=== PATIENT | female | born 1960 ===

== ENCOUNTER 2019-07-21 06:39 | Inpatient (IN) | payer MEDICARE, MEDICAID ==
[~2019-07-21] VITALS: Ht 167.6 cm; Wt 93.1 kg
[~2019-07-21 06:39] MED LIST: GABA800T5 PO; LUBI24CA7 PO; OXYC-432 PO
[2019-07-21] MEDS ORDERED: BUPIVACAINE/PF-EPI 0.25% 1:200K ONE (07:07)
[2019-07-21] MEDS ORDERED: THROMBIN 5,000 UNIT VIAL TP ONE (07:07)
[2019-07-21] MEDS ORDERED: EPINEPHRINE 1 MG/ML, 1ML ONE (07:07)
[2019-07-21] MEDS ORDERED: VANCOMYCIN 1,000 MG ONE ×2 (07:07→09:26)
[2019-07-21] MEDS ORDERED: LIDOCAINE/PF 0.5% ,50ML ONE (07:07)
[2019-07-21] MEDS ORDERED: LACTATED RINGERS 1,000 ML IV SCH (07:16)
[2019-07-21 07:18] VITALS: BP 119/81
[2019-07-21] MEDS ORDERED: FENTANYL PF 250 MCG/5ML ONE (07:21)
[2019-07-21] MEDS ORDERED: LIDOCAINE GEL 2%, 5ML ONE (07:24)
[2019-07-21] MEDS ORDERED: hydrALAzine 20 MG/ML, 1ML IV PRN (07:30)
[2019-07-21] MEDS ORDERED: FENTANYL PF 100 MCG/2ML IV PRN (07:30)
[2019-07-21] MEDS ORDERED: LABETALOL 5MG/ML, 20ML IV PRN (07:30)
[2019-07-21] MEDS ORDERED: OXYcodone 5 MG/5 ML ORAL.SOL UDC PO PRN (07:30)
[2019-07-21] MEDS ORDERED: MEPERIDINE/PF 25MG/ML,1ML IVPush PRN (07:30)
[2019-07-21] MEDS ORDERED: ACETAMINOPHEN 500 MG TABLET PO ONE (07:30)
[2019-07-21] MEDS ORDERED: PROMETHAZINE 25 MG/ML, 1ML IV PRN (07:30)
[2019-07-21] MEDS ORDERED: GABAPENTIN 300 MG CAPSULE PO ONE (07:30)
[2019-07-21] MEDS ORDERED: HALOPERIDOL 5 MG/ML IV PRN (07:30)
[2019-07-21] MEDS ORDERED: ALBUTEROL HFA 90 MCG/SPRAY ONE (08:00)
[2019-07-21] MEDS ORDERED: SUCCINYLCHOLINE 20 MG/ML, 10ML ONE (10:11)
[2019-07-21] MEDS ORDERED: NEOSTIGMINE 1 MG/ML, 10ML ONE (10:11)
[2019-07-21] MEDS ORDERED: DEXAMETHASONE 4 MG/ML, 1ML ONE (10:11)
[2019-07-21] MEDS ORDERED: GLYCOPYRROLATE 0.2MG/1ML, 5ML ONE (10:11)
[2019-07-21] MEDS ORDERED: PROPOFOL 10 MG/ML, 20ML ONE (10:11)
[2019-07-21] MEDS ORDERED: ONDANSETRON 2MG/ML, 2ML ONE (10:11)
[2019-07-21] MEDS ORDERED: CEFAZOLIN 1,000 MG ONE (10:11)
[2019-07-21] MEDS ORDERED: ROCURONIUM 10MG/ML,5ML ONE (10:11)
[2019-07-21] MEDS ORDERED: MEPERIDINE/PF 25MG/ML,1ML ONE (10:19)
[2019-07-21] MEDS ORDERED: HYDROmorphone 1 MG/ML, 1ML INJ ONE ×2 (10:19→10:40)
[2019-07-21] MEDS ORDERED: OXYcodone 5 MG/5 ML ORAL.SOL UDC ONE (10:19)
[2019-07-21] MEDS ORDERED: METHOCARBAMOL 1,000 MG in DEXTROSE 5% 100 ML IV ONE (10:30)
[2019-07-21] MEDS: HYDROmorphone 2 MG/ML, 1ML IVPush PRN ×3 (10:30→10:50)
[2019-07-21] MEDS ORDERED: DIAZEPAM 5 MG/ML, 2ML ONE (10:49)
[2019-07-21] MEDS ORDERED: DIPHENHYDRAMINE 50 MG/ML, 1ML ONE (10:49)
[2019-07-21] MEDS ORDERED: DIAZEPAM 5 MG/ML, 2ML IVPush PRN (11:00)
[2019-07-21] MEDS ORDERED: DIPHENHYDRAMINE 50 MG/ML, 1ML IVPush PRN (11:00)
[2019-07-21 12:15] VITALS: BP 114/72
[2019-07-21] MEDS ORDERED: HYDROcodone/APAP 5/325 TABLET PO PRN (13:00)
[2019-07-21] MEDS ORDERED: BISACODYL 10 MG SUPP PR PRN (13:00)
[2019-07-21] MEDS ORDERED: ONDANSETRON 2MG/ML, 2ML IV PRN (13:00)
[2019-07-21] MEDS ORDERED: MAGNESIUM HYDROXIDE 8%, 30ML UDC PO PRN (13:00)
[2019-07-21] MEDS ORDERED: PROMETHAZINE 25 MG/ML, 1ML IM PRN (13:00)
[2019-07-21] MEDS ORDERED: LUBIPROSTONE 24 MCG CAPSULE PO PRN (13:00)
[2019-07-21] MEDS: OXYcodone/APAP 5/325MG TABLET PO PRN ×3 (15:40→23:47)
[2019-07-21] MEDS: D5%-0.9% NACL+KCL 20MEQ 1,000 ML IV SCH (15:41)
[2019-07-21] MEDS: CEFAZOLIN PMX 1GM/50ML 50 ML IVPB SCH ×2 (15:41→23:48)
[2019-07-21] MEDS: SENNA/DOCUSATE TABLET PO SCH ×2 (16:00→20:04)
[2019-07-21] MEDS: morphine SULFATE 10 MG/ML, 1ML IV PRN (16:37)
[2019-07-21] MEDS: GABAPENTIN 400 MG CAPSULE PO SCH ×2 (18:15→23:47)
[2019-07-21] MEDS: METHOCARBAMOL 750 MG TABLET PO PRN (18:35)
[2019-07-21 21:01] VITALS: BP 122/72
[2019-07-22] VITALS: BP 116/71
[2019-07-22] MEDS: D5%-0.9% NACL+KCL 20MEQ 1,000 ML IV SCH ×3 (01:00→21:00)
[2019-07-22] MEDS: METHOCARBAMOL 750 MG TABLET PO PRN ×2 (03:56→17:54)
[2019-07-22] MEDS: GABAPENTIN 400 MG CAPSULE PO SCH ×5 (03:57→21:50)
[2019-07-22] MEDS: OXYcodone/APAP 5/325MG TABLET PO PRN ×5 (03:57→21:51)
[2019-07-22 04:08] VITALS: BP 123/90
[2019-07-22 05:59] LABS: ANION GAP 4 mmol/L (5-15); CALCIUM 8.8 mg/dL (8.5-10.1); CHLORIDE 110 mmol/L (98-107); CREATININE 0.63 mg/dL (0.55-1.02)
[2019-07-22 06:00] LABS: BASOPHILS # (AUTO) 0.12 x10^3/uL (0-0.1); BASOPHILS % (AUTO) 1 % (0-1); EOSINOPHILS # (AUTO) 0.01 x10^3/uL (0-0.4); EOSINOPHILS % (AUTO) 0 % (1-7); LYMPHOCYTES # (AUTO) 1.34 x10^3/uL (1-3.4); LYMPHOCYTES % (AUTO) 11 % (22-44); MD NO; MEAN CORPUSCULAR HEMOGLOBIN 29.7 pg (27.0-34.8); MEAN CORPUSCULAR HGB CONC 32.7 g/dL (32.4-35.8); MEAN CORPUSCULAR VOLUME 91.1 fL (80-100); MONOCYTES # (AUTO) 0.69 x10^3/uL (0.2-0.8); MONOCYTES % (AUTO) 6 % (2-9); NEUTROPHILS # (AUTO) 10.31 x10^3/uL (1.8-6.8); NEUTROPHILS % (AUTO) 83 % (42-75); PLATELET COUNT 218 x10^3/uL (130-400); RED BLOOD COUNT 4.09 x10^6/uL (3.82-5.3)
[2019-07-22] MEDS ORDERED: MORPHINE SULFATE 4 MG/ML, 1ML ONE (06:44)
[2019-07-22] MEDS: morphine SULFATE 10 MG/ML, 1ML IV PRN (06:46)
[2019-07-22 08:06] VITALS: BP 115/71
[2019-07-22] MEDS: SENNA/DOCUSATE TABLET PO SCH ×3 (08:10→21:50)
[2019-07-22 12:50] VITALS: BP 114/72
[2019-07-22 19:27] VITALS: BP 131/77
[2019-07-23 00:08] VITALS: BP 114/75
[2019-07-23] MEDS: GABAPENTIN 400 MG CAPSULE PO SCH ×4 (00:50→13:53)
[2019-07-23] MEDS: OXYcodone/APAP 5/325MG TABLET PO PRN ×3 (00:51→09:30)
[2019-07-23 05:26] LABS: ANION GAP 3 mmol/L (5-15); CALCIUM 8.4 mg/dL (8.5-10.1); CHLORIDE 110 mmol/L (98-107); CREATININE 0.73 mg/dL (0.55-1.02)
[2019-07-23 05:28] LABS: BASOPHILS # (AUTO) 0.05 x10^3/uL (0-0.1); BASOPHILS % (AUTO) 1 % (0-1); EOSINOPHILS % (AUTO) 3 % (1-7); LYMPHOCYTES # (AUTO) 2.42 x10^3/uL (1-3.4); LYMPHOCYTES % (AUTO) 25 % (22-44); MD NO; MEAN CORPUSCULAR HEMOGLOBIN 29.3 pg (27.0-34.8); MEAN CORPUSCULAR VOLUME 91.6 fL (80-100); MEAN PLATELET VOLUME 8.5 fL (7.4-10.4); MONOCYTES # (AUTO) 0.88 x10^3/uL (0.2-0.8); MONOCYTES % (AUTO) 9 % (2-9); NEUTROPHILS # (AUTO) 6.19 x10^3/uL (1.8-6.8); NEUTROPHILS % (AUTO) 63 % (42-75); PLATELET COUNT 235 x10^3/uL (130-400); RED BLOOD COUNT 3.89 x10^6/uL (3.82-5.3)
[2019-07-23 07:39] VITALS: BP 128/76
[2019-07-23] MEDS: SENNA/DOCUSATE TABLET PO SCH (08:38)
[2019-07-23] MEDS ORDERED: OXYC-307 PO (14:21)
== END 2019-07-23 14:30 | disposition home or self-care (01) | DRG 460 ==
LOC: ORIP 06:39 → 4NE 12:12 → DCLOUNGE 07-23 14:22
PROVIDERS: ADMIT Orthopaedic Surgery Orthopaedic Surgery of the Spine; ATTEND Orthopaedic Surgery Orthopaedic Surgery of the Spine
PROC: 01NB0ZZ Release Lumbar Nerve, Open Approach (ICD-10-PCS; 2019-07-21)
PROC: 00NY0ZZ Release Lumbar Spinal Cord, Open Approach (ICD-10-PCS; 2019-07-21)
PROC: 4A11X4G Monitoring of Peripheral Nervous Electrical Activity, Intraoperative, External Approach (ICD-10-PCS; 2019-07-21)
PROC: 01NR0ZZ Release Sacral Nerve, Open Approach (ICD-10-PCS; 2019-07-21)
PROC: 0SG30J1 Fusion of Lumbosacral Joint with Synthetic Substitute, Posterior Approach, Posterior Column, Open Approach (ICD-10-PCS; principal; 2019-07-21 07:30)
DX: M43.17 Spondylolisthesis, lumbosacral region (principal); M48.07 Spinal stenosis, lumbosacral region; J44.9 Chronic obstructive pulmonary disease, unspecified; K58.9 Irritable bowel syndrome, unspecified; F17.200 Nicotine dependence, unspecified, uncomplicated; Z79.899 Other long term (current) drug therapy; Z90.49 Acquired absence of other specified parts of digestive tract
CPT/HCPCS: 36415; 72100; 80048; 85025; C1713; G0378; J0171; J0690; J1100; J1170; J2001; J2405; J2704; J2710; J3010; J3360; J3370; J0330; J1200; J2175; J2270; J2800; J3480; J7120